=== PATIENT | female | born 1995 | race Caucasian/White ===

== ENCOUNTER 2023-09-27 20:47 | Emergency (ER) | payer MEDICAID ==
[~2023-09-27] VITALS: Ht 160 cm; Wt 55.5 kg
[2023-09-27 20:58] VITALS: BP 118/73; PULSE 93; RESP 20; TEMP 98.4
[2023-09-28] MEDS ORDERED: OLAN5TAB52 PO (10:09)
== END 2023-09-28 02:32 | disposition home or self-care (01) ==
LOC: EMS 20:50
DX: S09.90XA Unspecified injury of head, initial encounter (principal); F20.9 Schizophrenia, unspecified; F17.210 Nicotine dependence, cigarettes, uncomplicated; F12.90 Cannabis use, unspecified, uncomplicated; X58.XXXA Exposure to other specified factors, initial encounter; Y93.89 Activity, other specified; Y92.89 Other specified places as the place of occurrence of the external cause; Y99.8 Other external cause status
CPT/HCPCS: 70450; 99284

== ENCOUNTER 2023-09-28 05:28 | Inpatient (IN) | payer MEDICAID ==
[~2023-09-28] VITALS: Ht 160 cm; Wt 58.6 kg
[2023-09-28 07:33] VITALS: BP 110/62; PULSE 87; RESP 18; TEMP 98.2
[2023-09-28 08:29] VITALS: RESP 16
[2023-09-28] MEDS ORDERED: OLAN5TAB52 PO (10:09)
[2023-09-28] MEDS: HALOPERIDOL 5 MG TABLET PO PRN (18:12)
[2023-09-28] MEDS: LORazepam 2 MG TABLET PO PRN (18:12)
[2023-09-28 20:45] VITALS: RESP 16
[2023-09-28] MEDS: ZOLPIDEM TARTRATE 10 MG TABLET PO PRN (21:51)
[2023-09-29 08:00] LABS: HEMATOCRIT 42.6 % (36-46); HEMOGLOBIN 14.4 g/dL (12.0-16.0); LYMPHOCYTES # (AUTO) 2.6 K/uL (1.0-4.8); LYMPHOCYTES % (AUTO) 35.6 % (22.0-44.0); MEAN CORPUSCULAR HEMOGLOBIN 32.9 pg (26.0-34.0); MEAN CORPUSCULAR HGB CONC 33.8 G/dL (31.0-37.0); MEAN CORPUSCULAR VOLUME 97 fL (80-100); MONOCYTES # (AUTO) 0.6 K/uL (0.1-1.0); MONOCYTES % (AUTO) 8.1 % (2.0-9.0); NEUTROPHILS # (AUTO) 3.9 K/uL (1.8-7.7); NEUTROPHILS % (AUTO) 54.3 % (40.0-70.0); PLATELET COUNT (AUTO) 263 K/uL (150-450); RED BLOOD CELL COUNT(AUTO) 4.38 MIL/uL (4.00-5.20); RED CELL DISTRIBUTION WIDTH 13.2 % (11.5-14.5); WHITE BLOOD COUNT (AUTO) 7.2 K/uL (4.5-11.0)
[2023-09-29 08:18] LABS: HEMOGLOBIN A1C 5.3 % (3.8-5.6)
[2023-09-29 08:29] LABS: ALANINE AMINOTRANSFERASE 21 U/L (12-78); ALBUMIN 4.1 g/dL (3.4-5.0); ALKALINE PHOSPHATASE 87 U/L (46-116); ANION GAP 8 mmol/L (8-16); ASPARTATE AMINOTRANSFERASE 15 U/L (15-37); BILIRUBIN,TOTAL 0.6 mg/dL (0.1-1.0); CALCIUM, TOTAL 8.6 mg/dL (8.8-10.5); CARBON DIOXIDE 28 mmol/L (22-29); CHLORIDE 102 mmol/L (98-107); CHOLESTEROL 133 mg/dL (131-200); CREATININE 0.75 mg/dL (0.60-1.30); FREE T4 (FREE THYROXINE) 1.28 ng/dL (0.76-1.46); GLOMERULAR FILTR. RATE CALC > 60 mL/min (>60); GLUCOSE,RANDOM 97 mg/dL (70-110); HCG,QUANTITATIVE 1 mIU/mL (0-6); HDL CHOLESTEROL 68 mg/dL (40-60); LDL CHOL (CALC.) 51 mg/dL (0-130); POTASSIUM 3.7 mmol/L (3.5-5.1); SODIUM SERUM 138 mmol/L (136-145); THYROID STIMULATING HORMONE 1.44 uIU/mL (0.36-3.74); TOTAL PROTEIN, SERUM 7.6 g/dL (6.4-8.2); TRIGLYCERIDES 68 mg/dL (15-150); UREA NITROGEN, BLOOD 11 mg/dL (7-18)
[2023-09-29] MEDS: NICOTINE POLACRILEX 4 MG LOZENGE PO PRN (09:05)
[2023-09-29 12:44] VITALS: BP 130/80; PULSE 99; RESP 18; TEMP 97; O2SAT 99
== END 2023-09-29 16:32 | disposition home or self-care (01) | DRG 750 ==
LOC: B3A 05:46
PROVIDERS: ADMIT Psychiatry & Neurology Psychiatry; ATTEND Psychiatry & Neurology Psychiatry
DX: F25.9 Schizoaffective disorder, unspecified (principal); F10.90 Alcohol use, unspecified, uncomplicated; F32.9 Major depressive disorder, single episode, unspecified; F41.9 Anxiety disorder, unspecified; G47.00 Insomnia, unspecified; F12.90 Cannabis use, unspecified, uncomplicated; R51.9 Headache, unspecified
CPT/HCPCS: 80053; 80061; 83036; 84439; 84443; 84702; 85025; Q9967